=== PATIENT | female | born 1955 | race Caucasian/White ===

== ENCOUNTER → 2016-06-22 | Outpatient (CLI) | payer MEDICAID ==
--- NOTE | 2016-06-23 08:11 | MM ---
Reason for exam: screening (asymptomatic). Last mammogram was performed 1 year and 3 months ago. History: Patient is postmenopausal. Family history of breast cancer in aunt and breast cancer in mother at age 65. Took hormonal contraceptives for 1 year beginning at age 19. Physical Findings: A clinical breast exam by your physician is recommended on an annual basis and results should be correlated with mammographic findings. MG 3D Screening Mammo W/Cad Bilateral CC and MLO view(s) were taken. Prior study comparison: March 11, 2015, bilateral MG 3d screening mammo w/cad. September 25, 2013, bilateral MG screening mammo w CAD. The breast tissue is heterogeneously dense. This may lower the sensitivity of mammography. Asymmetric breast tissue in the right upper outer quadrant, stable. There is no discrete abnormality. ASSESSMENT: Negative, BI-RAD 1 RECOMMENDATION: Routine screening mammogram of both breasts in 1 year.
== END | disposition home or self-care (01) ==
LOC: RADMAMWWP 08:02
PROVIDERS: ATTEND Obstetrics & Gynecology
DX: Z12.31 Encounter for screening mammogram for malignant neoplasm of breast (principal); C54.1 Malignant neoplasm of endometrium
CPT/HCPCS: 77063; G0202

== ENCOUNTER → 2016-12-19 | Outpatient (CLI) | payer MEDICAID ==
--- NOTE | 2016-12-19 14:48 | BD ---
EXAMINATION TYPE: MG DEXA axial skeleton. DATE OF EXAM: 12/19/2016 COMPARISON: NONE CLINICAL HISTORY: Postmenopausal female. Height: 66.7 IN Weight: 184 LBS FRAX RISK QUESTIONS: Alcohol (3 or more units per day): NO Family History (Parent hip fracture): YES MOTHER Glucocorticoids (More than 3mos): NO (Ex: prednisone, prednisolone, methylprednisolone, dexamethasone, and hydrocortisone). History of Fracture in Adulthood: NO Secondary Osteoporosis: 1. Type 1 Diabetes: NO 2. Hyperthyroidism: NO 3. Menopause before 45: NO 4. Malnutrition: NO 5. Chronic liver disease: NO Rheumatoid Arthritis: NO Current Tobacco Use: NO RISK FACTORS HISTORY OF: Active: YES Postmenopausal woman: AGE 55 Take estrogen and/or progesterone medications: NOT NOW How long: VAGINAL HORMONES AGE 57 - 58 MEDICATIONS: Additional Medications: VIT D, COQ10, FISH OIL, PROBIOTICS, MAGNESIUM, TUMERIC, BLACK COHASH, TENORE TIC, EXAM MEASUREMENTS: Bone mineral densitometry was performed using the [employer] System. Bone mineral density as measured about the Lumbar spine is: ----- L1-L4(G/cm2): 1.101 T Score Values are as follows: ----- L2: -0.3 ----- L3: -1.3 ----- L4: -1.2 ----- L1-L4: -0.7 Bone mineral density has: Decreased -1.0% since study of: 09/29/2010 Bone mineral density about the R hip (g/cm2): 0.835 Bone mineral density about the L hip (g/cm2): 0.919 T Score values are as follows: -----R Neck: -1.5 -----L Neck: -0.9 -----R Total: -0.5 -----L Total: 0.1 Bone mineral density has: Decreased -1.7% since study of: 09/29/2010 IMPRESSION: 1. Osteopenia (T Score between -2.5 and -1 ) as noted by T score values regarding the right hip and l umbar spine There is slightly increased risk of fracture and the patient may be considered for treatment. Re-Screen 2-5 years. 2. Normal (Values between +1 and -1 indicate normal bone mass) regarding the left hip. Consider repeatin g this study in 5 years or sooner if there is some new clinical indication. NOTE: T-SCORE=SD OF THE YOUNG ADULT MEAN.
== END | disposition home or self-care (01) ==
LOC: RADBDWWP 07:50
PROVIDERS: ATTEND Obstetrics & Gynecology
DX: M85.851 Other specified disorders of bone density and structure, right thigh (principal); M85.88 Other specified disorders of bone density and structure, other site
CPT/HCPCS: 77080

== ENCOUNTER → 2016-12-28 | Outpatient (CLI) | payer MEDICAID ==
[2016-12-28 09:10] LABS: Basophils % (A) 1 %; CH 29.8; CHCM 33.3; Eosinophils # (A) 0.3 k/uL (0-0.7); Eosinophils % (A) 4 %; HDW 2.44; Luc # (Auto) 0.09; Luc % (Auto) 1; Lymphocytes # (A) 1.9 k/uL (1.0-4.8); Lymphocytes % (A) 28 %; MCH 30.7 pg (25.0-35.0); MCHC 34.3 g/dL (31.0-37.0); MCV 89.7 fL (80.0-100.0); Mean Platelet Volume 6.8; Monocytes # (A) 0.4 k/uL (0-1.0); Monocytes % (A) 5 %; Neutrophils # (A) 4.2 k/uL (1.3-7.7); Neutrophils % (A) 62 %; RBC 4.57 m/uL (3.80-5.40); RDW 12.7 % (11.5-15.5); WBC 6.8 k/uL (3.8-10.6); WBC (Perox) 7.23
[2016-12-28 09:23] LABS: Anion Gap 11 mmol/L; Blood Urea Nitrogen 12 mg/dL (7-17); Calcium 9.8 mg/dL (8.4-10.2); Carbon Dioxide 27 mmol/L (22-30); Chloride 101 mmol/L (98-107); Glucose 87 mg/dL (74-99); Non-African American GFR(MDRD) >60 (>60 ml/min/1.73 sqM); Sodium 139 mmol/L (137-145)
[2016-12-28 09:24] LABS: Appearance,Urine Clear (Clear); Bilirubin,Urine Negative (Negative); Glucose,Urine (UA) Negative (Negative); Ketones,Urine Negative (Negative); Leukocyte Esterase,Urine Negative (Negative); Nitrite,Urine Negative (Negative); PH, Urine 5.5 (5.0-8.0); Protein,Urine Negative (Negative); Specific Gravity,Urine 1.005 (1.001-1.035); UA Billing (MACRO vs. MICRO) CHEM; Urobilinogen,Urine <2.0 mg/dL (<2.0)
== END | disposition home or self-care (01) ==
LOC: LABPAT 08:32
PROVIDERS: ATTEND Urology
DX: N39.3 Stress incontinence (female) (male) (principal); N39.0 Urinary tract infection, site not specified; R35.0 Frequency of micturition; Z79.899 Other long term (current) drug therapy; Z01.812 Encounter for preprocedural laboratory examination
CPT/HCPCS: 80048; 81003; 85025; 87086

== ENCOUNTER 2017-01-05 08:22 | Observation (INO) | payer MEDICAID ==
[2016-12-29 11:01] VITALS: BMI 28.8
[~2017-01-05 08:22] MED LIST: DEXAMETHASONE SOD PHOSPHATE 10 MG/ML 1 ML VIAL IV ONE; LACTATED RINGERS 1,000 ML IV SCH; ONDANSETRON 4 MG/2 ML VIAL IVP ONE; ceFAZolin 1,000 MG in DEXTROSE/WATER 1 50ML.BAG IV ONE
[2017-01-05] MEDS ORDERED: LIDOCAINE 1% 20 ML VIAL (10MG/ML) FOR IV START INTRADERMA ONE (09:07)
[2017-01-05] MEDS ORDERED: SCOPOLAMINE 1.5MG/72HR PATCH TRANSDERM STA (09:48)
[2017-01-05] MEDS ORDERED: MIDAZOLAM 2 MG/2 ML VIAL ONE (10:29)
[2017-01-05] MEDS ORDERED: ePHEDrine SULFATE/0.9% NACL/PF 50 MG/5 ML SYRINGE IV ONE (10:29)
[2017-01-05] MEDS ORDERED: PROPOFOL 10 MG/ML 20 ML VIAL IV ONE (10:29)
[2017-01-05] MEDS ORDERED: SUCCINYLCHOLINE CHLORIDE 100 MG/5 ML SYR IV ONE (10:29)
[2017-01-05] MEDS ORDERED: LIDOCAINE 1% INJ 10MG/ML (20 ML MDV) ONE (10:29)
[2017-01-05] MEDS ORDERED: fentaNYL (PF) 50 MCG/ML 2 ML AMP ONE (10:29)
[2017-01-05] MEDS ORDERED: VASOPRESSIN 20 UNIT/ML 1 ML VIAL SQ ONE (10:52)
[2017-01-05] MEDS ORDERED: CYCLOBENZAPRINE 10 MG TAB PO PRN (11:33)
[2017-01-05] MEDS ORDERED: ONDANSETRON 4 MG/2 ML VIAL IVP PRN (11:34)
--- NOTE | 2017-01-05 11:44 | P.OP ---
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 I will use autologous fascia. Description of Procedure: The patient is brought to the operating suite and given a successful general endotracheal anesthesia. She's placed in lithotomy position with a sterile prep and drape. Root catheters introduced sterilely. The labia are sewn laterally with 2-0 silk. A vaginal speculum was introduced in the vagina. Anterior vaginal mucosa was elevated off the submucosa with 10 mL of of a mixture of 20 units of Pitressin and 200 mL of saline. A midline suburethral incision is made. I elevate the mucosa off the submucosa. I dissect lateral to the bladder neck bilaterally. I then make a suprapubic Pfannenstiel incision. I dissect down the rectus fascia. I take an ellipse of rectus fascia horizontally 2 x 8 cm. The rectus fascias closed with 2 running 0 PDS stitches. I then place 2-0 Prolene's through each end of the fascia graft. I passed the Stamey needles at the corner of the pubis retropubically into the vaginal space making sure not to injure the bladder. I performed cystoscopy to make sure no bladder injury has been created and there has been none. I then attached the Prolene stitches to the eyes of the Stamey needle and bringing them back up to the suprapubic fascia. The graft lay nicely at the bladder neck and the secured with a 4 Vicryl. I tied the ends of the Prolene stitch over the rectus fascia such that 2 fingerbreadths can fit between the stitch in the fascia. I closed the vaginal mucosa with 2-0 Vicryl. I closed the skin with a 4-0 Monocryl. A batch packing placed. The labial stitches are removed. The Root had been previously placed. The patient's awakened and returned recovery room good condition. Blood loss is 50 mL.
[2017-01-05] MEDS ORDERED: DEXTROSE 5%-0.45% NACL 1,000 ML IV SCH (11:45)
[2017-01-05] MEDS: KETOROLAC 30 MG/ML 1 ML VIAL IVP PRN ×2 (11:48→18:23)
[2017-01-05] MEDS: HYDROmorphone 1 MG/ML 1 ML SYRINGE IVP ONE ×2 (11:51→11:56)
[2017-01-05] MEDS ORDERED: LACTATED RINGERS 1,000 ML IV ONE ×3 (12:05)
[2017-01-05] MEDS ORDERED: PROMETHAZINE INJ 25 MG/ML 1 ML VIAL IVPB ONE (12:08)
[2017-01-05] MEDS ORDERED: ACETAMINOPHEN TAB 500 MG TAB PO PRN (20:40)
[2017-01-05] MEDS ORDERED: diphenhydrAMINE 50 MG CAP PO PRN (20:46)
[2017-01-06] MEDS: KETOROLAC 30 MG/ML 1 ML VIAL IVP PRN ×3 (00:27→12:55)
--- NOTE | 2017-01-06 06:48 | P.PN ---
Subjective The patient is 24 hours status post pubovaginal sling and cystoscopy for stress urinary incontinence. She did well overnight. She has some discomfort and her Pfannenstiel incision. The catheter and packing have just been removed. If she voids well she will probably be discharged home later today. Her vital signs are stable. Objective - Vital Signs Vital signs: Vital Signs Temp 97.9 F 01/05/17 20:30 Pulse 65 01/05/17 20:30 Resp 16 01/05/17 20:30 BP 105/63 01/05/17 20:30 Pulse Ox 94 L 01/05/17 20:30 Intake & Output 01/05/17 01/05/17 01/06/17 06:59 18:59 06:59 Intake Total 1780 120 Output Total 1325 Balance 455 120 Weight 83.46 kg Intake: IV 1750 Oral 30 120 Output: Urine 1300 Estimated Blood Loss 25 Other: Voiding Method Indwelling Catheter
--- NOTE | 2017-01-06 06:49 | P.DS ---
Providers Date of admission: 01/06/17 00:31 Attending physician: Paras Luque Primary care physician: Stated None Hospital Course: The patient underwent a pubovaginal sling for stress urinary incontinence 2016. She did well overnight. Her vital signs are stable. Her pain is controlled. If she voids well she'll be discharged home later today. She'll follow-up in the office in one week. Her medications upon discharge are the same as what she is admitted plus Toradol for pain. Postoperative instructions have been given. Condition is good. Procedures: Pubovaginal sling Patient Condition at Discharge: Good Plan - Discharge Summary New Discharge Prescriptions: New Ketorolac [Toradol] 10 mg PO Q6HR PRN #20 tab PRN Reason: Pain Control No Action Ubidecarenone [Co Q-10] 100 mg PO DAILY New [place]-3 Fatty Acids/Fish Oil [Fish Oil 1,000 mg Softgel] 1 cap PO DAILY Magnesium 200 mg PO DAILY L.acidoph,Paracasei, B.lactis [Probiotic] 1 cap PO DAILY Black Cohosh Root [Black Cohosh] 200 mg PO DAILY Atenolol/Chlorthalidone [Tenoretic 50 Tablet] 1 tab PO DAILY Aspirin [Adult Low Dose Aspirin EC] 81 mg PO DAILY Cyclobenzaprine [Flexeril] 10 mg PO HS PRN PRN Reason: Muscle Pain Ibuprofen [Motrin] 800 mg PO TID PRN PRN Reason: Pain Acetaminophen/Diphenhydramine [Tylenol PM 500-25mg] 2 tab PO HS PRN PRN Reason: Insomnia Vit A/Vit C/Vit E/Zinc/Copper [ICAPS SOFTGEL] 1 cap PO DAILY Turmeric Root Extract [Turmeric] 500 mg PO DAILY Discharge Medication List Aspirin [Adult Low Dose Aspirin EC] 81 mg PO DAILY 01/26/16 [History] Atenolol/Chlorthalidone [Tenoretic 50 Tablet] 1 tab PO DAILY 01/26/16 [History] Black Cohosh Root [Black Cohosh] 200 mg PO DAILY 01/26/16 [History] L.acidoph,Paracasei, B.lactis [Probiotic] 1 cap PO DAILY 01/26/16 [History] Magnesium 200 mg PO DAILY 01/26/16 [History] New [place]-3 Fatty Acids/Fish Oil [Fish Oil 1,000 mg Softgel] 1 cap PO DAILY [History] Ubidecarenone [Co Q-10] 100 mg PO DAILY 01/26/16 [History] Acetaminophen/Diphenhydramine [Tylenol PM 500-25mg] 2 tab PO HS PRN 01/29/16 [ History] Cyclobenzaprine [Flexeril] 10 mg PO HS PRN 01/29/16 [History] Ibuprofen [Motrin] 800 mg PO TID PRN 01/29/16 [History] Turmeric Root Extract [Turmeric] 500 mg PO DAILY 12/29/16 [History] Vit A/Vit C/Vit E/Zinc/Copper [ICAPS SOFTGEL] 1 cap PO DAILY 12/29/16 [History] Ketorolac [Toradol] 10 mg PO Q6HR PRN #20 tab 01/06/17 [Rx] Follow up Appointment(s)/Referral(s): Paras Luque MD [STAFF PHYSICIAN] - 1 Week Activity/Diet/Wound Care/Special Instructions: may shower Discharge Disposition: HOME SELF-CARE
[2017-01-06] MEDS ORDERED: ATENOLOL 50 MG TAB PO SCH (09:00)
[2017-01-06] MEDS ORDERED: ASPIRIN 81 MG PO SCH (09:00)
[2017-01-06] MEDS ORDERED: CHLORTHALIDONE PO SCH (09:00)
[2017-01-06] MEDS ORDERED: CHLORTHALIDONE 25 MG TAB PO SCH (09:00)
[2017-01-06] MEDS ORDERED: ATENOLOL PO SCH (09:00)
[2017-01-06 14:12] VITALS: BP 108/74; PULSE 60; RESP 20; TEMP 97.4
== END 2017-01-06 18:04 | disposition home or self-care (01) ==
LOC: OR 08:22 → 6PED 11:29 → OR 01-06 00:31
PROVIDERS: ADMIT Urology; ATTEND Urology
DX: N39.3 Stress incontinence (female) (male) (principal); I10 Essential (primary) hypertension; K21.9 Gastro-esophageal reflux disease without esophagitis; K44.9 Diaphragmatic hernia without obstruction or gangrene; Z85.89 Personal history of malignant neoplasm of other organs and systems; Z80.52 Family history of malignant neoplasm of bladder; Z87.891 Personal history of nicotine dependence; Z90.710 Acquired absence of both cervix and uterus; Z79.899 Other long term (current) drug therapy; Z79.82 Long term (current) use of aspirin; Z79.890 Hormone replacement therapy; Z88.5 Allergy status to narcotic agent
CPT/HCPCS: 57288; G0378; J2250; J1100; J2550; J2405; J2001; J3010; J1885 ×2; J1170; J0690; J0330; J2704

== ENCOUNTER → 2017-10-25 | Outpatient (CLI) | payer MEDICAID ==
--- NOTE | 2017-10-27 10:45 | MM ---
Reason for exam: screening (asymptomatic). Last mammogram was performed 1 year and 4 months ago. History: Patient is postmenopausal and history of other cancer. Family history of breast cancer in aunt and breast cancer in mother at age 65. Took hormonal contraceptives for 1 year beginning at age 19. Physical Findings: A clinical breast exam by your physician is recommended on an annual basis and results should be correlated with mammographic findings. MG 3D Screening Mammo W/Cad Bilateral CC and MLO view(s) were taken. Prior study comparison: June 22, 2016, bilateral MG 3d screening mammo w/cad. March 11, 2015, bilateral MG 3d screening mammo w/cad. There are scattered fibroglandular densities. No significant changes when compared with prior studies. ASSESSMENT: Negative, BI-RAD 1 RECOMMENDATION: Routine screening mammogram of both breasts in 1 year.
== END | disposition home or self-care (01) ==
LOC: RADMAMWWP 08:08
PROVIDERS: ATTEND Obstetrics & Gynecology
DX: Z12.31 Encounter for screening mammogram for malignant neoplasm of breast (principal)
CPT/HCPCS: 77063; 77067

== ENCOUNTER → 2018-05-18 | Outpatient (CLI) | payer MEDICAID ==
[2018-05-18 09:03] LABS: Basophils % (A) 1 %; Eosinophils # (A) 0.3 k/uL (0-0.7); Eosinophils % (A) 6 %; HCT 40.7 % (34.0-46.0); HGB 13.6 gm/dL (11.4-16.0); Lymphocytes # (A) 1.8 k/uL (1.0-4.8); Lymphocytes % (A) 36 %; MCH 29.8 pg (25.0-35.0); MCHC 33.4 g/dL (31.0-37.0); MCV 89.3 fL (80.0-100.0); Mean Platelet Volume 7.1; Monocytes # (A) 0.3 k/uL (0-1.0); Monocytes % (A) 5 %; Neutrophils # (A) 2.6 k/uL (1.3-7.7); Neutrophils % (A) 52 %; Platelet Count 250 k/uL (150-450); RBC 4.56 m/uL (3.80-5.40); RDW 12.9 % (11.5-15.5)
[2018-05-18 09:16] LABS: Appearance,Urine Clear (Clear); Bacteria,Urine Rare /hpf; Bilirubin,Urine Negative (Negative); Blood,Urine Negative (Negative); Color,Urine Yellow; Glucose,Urine (UA) Negative (Negative); Ketones,Urine Negative (Negative); Leukocyte Esterase,Urine Moderate (Negative); Mucus,Urine Rare /hpf; Nitrite,Urine Negative (Negative); Protein,Urine Negative (Negative); RBC,Urine 1 /hpf (0-5); Specific Gravity,Urine 1.011 (1.001-1.035); Squamous Epithelial Cell,Urine 1 /hpf (0-4); Urobilinogen,Urine <2.0 mg/dL (<2.0); WBC,Urine 2 /hpf (0-5)
[2018-05-18 10:18] LABS: Erythrocyte Sedimentation Rate 8 mm/hr (0-20)
[2018-05-18 16:41] LABS: Albumin 4.2 g/dL (3.80-4.90); Anion Gap 8.6 mmol/L (4.00-12.00); Calcium 9.4 mg/dL (8.7-10.3); Carbon Dioxide 32.4 mmol/L (21.6-31.8); Globulin 2.1 g/dL (1.6-3.3); LDL Cholesterol,Calculated 127.8 mg/dL (0.0-131.0); Potassium 3.7 mmol/L (3.5-5.5); Total Bilirubin 0.3 mg/dL (0.2-1.2); Total Protein 6.3 g/dL (6.2-8.2); VLDL Calculation 27.2 mg/dL (5.00-40.00)
[2018-05-18 16:47] LABS: Vitamin D 25 Hydroxy 37.3 ng/mL (30.0-100.0)
== END | disposition home or self-care (01) ==
LOC: LABWHC1 07:28
PROVIDERS: ATTEND Family Medicine
DX: Z00.00 Encounter for general adult medical examination without abnormal findings (principal); I10 Essential (primary) hypertension
CPT/HCPCS: 36415; 80053; 80061; 81001; 82306; 82550; 82607; 84443; 85025; 85652

== ENCOUNTER → 2018-12-24 | Outpatient (CLI) | payer MEDICAID ==
--- NOTE | 2018-12-24 10:55 | MM ---
Reason for exam: screening (asymptomatic). Last mammogram was performed 1 year and 2 months ago. History: Patient is postmenopausal and history of other cancer. Family history of breast cancer in aunt and breast cancer in mother at age 65. Took hormonal contraceptives for 1 year beginning at age 19. Physical Findings: A clinical breast exam by your physician is recommended on an annual basis and results should be correlated with mammographic findings. MG 3D Screening Mammo W/Cad Bilateral CC and MLO view(s) were taken. Prior study comparison: October 25, 2017, bilateral MG 3d screening mammo w/cad. June 22, 2016, bilateral MG 3d screening mammo w/cad. The breast tissue is heterogeneously dense. This may lower the sensitivity of mammography. There are benign appearing round calcifications bilaterally. There is no discrete abnormality. ASSESSMENT: Benign, BI-RAD 2 RECOMMENDATION: Routine screening mammogram of both breasts in 1 year.
--- NOTE | 2018-12-24 19:25 | BD ---
EXAMINATION TYPE: Axial Bone Density DATE OF EXAM: 12/24/2018 COMPARISON: 2017 CLINICAL HISTORY: 63-year-old female osteopenia Height: 66.75 Weight: 175 FRAX RISK QUESTIONS: Alcohol (3 or more units per day): no Family History (Parent hip fracture): yes, mother Glucocorticoids (More than 3mos): no (Ex: prednisone, prednisolone, methylprednisolone, dexamethasone, and hydrocortisone). History of Fracture in Adulthood: no Secondary Osteoporosis: 1. Type 1 Diabetes: no 2. Hyperthyroidism: no 3. Menopause before 45: no 4. Malnutrition: no 5. Chronic liver disease: no Rheumatoid Arthritis: no Current Tobacco Use: no RISK FACTORS HISTORY OF: Family History of Osteoporosis: no Active: yes Diet low in dairy products/other sources of calcium: no Postmenopausal woman: yes Take estrogen and/or progesterone medications: not now Lost more than 2 inches in height since high school: no Frequent falls: no Poor Health: no Hyperparathyroidism: no Adrenal Insufficiency: no MEDICATIONS: Prednisone or other steroids: no Thyroid Medications: no Osteoporosis Medications: no Additional Medications: blood pressure med Additional History: EXAM MEASUREMENTS: Bone mineral densitometry was performed using the [employer] System. Bone mineral density as measured about the Lumbar spine is: ----- L1-L4(G/cm2): 1.104 T Score Values are as follows: ----- L2: -0.4 ----- L3: -1.4 ----- L4: -0.9 ----- L1-L4: -0.6 Bone mineral density has: Increased 0.5% since study of: 12/19/2016 Bone mineral density about the R hip (g/cm2): 0.836 Bone mineral density about the L hip (g/cm2): 0.905 T Score values are as follows: -----R Neck: -1.5 -----L Neck: -1.0 -----R Total: -0.3 -----L Total: 0.1 Bone mineral density has: Increased 1.7% since study of: 12/19/2016 IMPRESSION: Osteopenia (T Score between -2.5 and -1). There is slightly increased risk of fracture and the patient may be considered for treatment. Re-Screen 2-5 years. NOTE: T-SCORE=SD OF THE YOUNG ADULT MEAN.
== END | disposition home or self-care (01) ==
LOC: RADMAMWWP 07:39
PROVIDERS: ATTEND Obstetrics & Gynecology
DX: Z12.31 Encounter for screening mammogram for malignant neoplasm of breast (principal); M85.80 Other specified disorders of bone density and structure, unspecified site
CPT/HCPCS: 77063; 77067; 77080

== ENCOUNTER → 2019-05-01 | Outpatient (CLI) | payer MEDICAID ==
[2019-05-01 07:52] LABS: Appearance,Urine Clear (Clear); Bacteria,Urine Occasional /hpf; Basophils # (A) 0.1 k/uL (0-0.2); Basophils % (A) 1 %; Bilirubin,Urine Negative (Negative); Blood,Urine Trace (Negative); Color,Urine Yellow; Eosinophils # (A) 0.3 k/uL (0-0.7); Eosinophils % (A) 6 %; Glucose,Urine (UA) Negative (Negative); HCT 41.2 % (34.0-46.0); HGB 13.8 gm/dL (11.4-16.0); Ketones,Urine Negative (Negative); Leukocyte Esterase,Urine Large (Negative); Lymphocytes # (A) 2.4 k/uL (1.0-4.8); Lymphocytes % (A) 42 %; MCH 29.8 pg (25.0-35.0); MCHC 33.4 g/dL (31.0-37.0); MCV 89.2 fL (80.0-100.0); Mean Platelet Volume 7.7; Monocytes # (A) 0.4 k/uL (0-1.0); Monocytes % (A) 7 %; Mucus,Urine Rare /hpf; Neutrophils # (A) 2.5 k/uL (1.3-7.7); Neutrophils % (A) 43 %; Nitrite,Urine Negative (Negative); Platelet Count 295 k/uL (150-450); Protein,Urine Negative (Negative); RBC 4.62 m/uL (3.80-5.40); RBC,Urine 4 /hpf (0-5); RDW 12.4 % (11.5-15.5); Specific Gravity,Urine 1.017 (1.001-1.035); Squamous Epithelial Cell,Urine 3 /hpf (0-4); Urobilinogen,Urine <2.0 mg/dL (<2.0); WBC 5.7 k/uL (3.8-10.6); WBC,Urine 28 /hpf (0-5)
[2019-05-01 13:25] LABS: Hepatitis A Antibody IgM Non-Reactive (Non-Reactive); Hepatitis B Core IgM Non-Reactive (Non-Reactive); Hepatitis B Surface Antigen Non-Reactive (Non-Reactive); Hepatitis C IgG Antibody Non-Reactive (Non-Reactive)
[2019-05-01 13:57] LABS: African American GFR (CKD) 79.4 (60.0-200.0); Albumin 4.4 g/dL (3.80-4.90); Albumin/Globulin Ratio 2.1 (1.60-3.17); Anion Gap 6.8 mmol/L (4.00-12.00); BUN/Creat Ratio 17.78 Ratio (12.00-20.00); Calcium 9.4 mg/dL (8.7-10.3); Carbon Dioxide 30.2 mmol/L (21.6-31.8); Chol/HDL Ratio 4.14; Globulin 2.1 g/dL (1.6-3.3); Non-African American GFR(CKD) 68.5 (60.0-200.0); Potassium 3.8 mmol/L (3.5-5.5); Total Bilirubin 0.3 mg/dL (0.3-1.2); Total Protein 6.5 g/dL (6.2-8.2)
[2019-05-01 14:05] LABS: T4, Free (Free Thyroxine) 1.1 ng/dL (0.80-1.80)
== END | disposition home or self-care (01) ==
LOC: LABWHC1 07:13
PROVIDERS: ATTEND Family Medicine
DX: Z00.00 Encounter for general adult medical examination without abnormal findings (principal); Z11.59 Encounter for screening for other viral diseases; I10 Essential (primary) hypertension; R32 Unspecified urinary incontinence
CPT/HCPCS: 36415; 80053; 80061; 80074; 81001; 82306; 82607; 84439; 84443; 85025

== ENCOUNTER → 2019-12-30 | Outpatient (CLI) | payer MEDICAID ==
--- NOTE | 2019-12-31 13:41 | MM ---
Reason for exam: screening (asymptomatic). Last mammogram was performed 1 year ago. History: Patient is postmenopausal and history of other cancer. Family history of breast cancer in aunt and breast cancer in mother at age 65. Took hormonal contraceptives for 1 year beginning at age 19. Physical Findings: A clinical breast exam by your physician is recommended on an annual basis and results should be correlated with mammographic findings. MG 3D Screening Mammo W/Cad Bilateral CC and MLO view(s) were taken. Prior study comparison: December 24, 2018, bilateral MG 3d screening mammo w/cad. October 25, 2017, bilateral MG 3d screening mammo w/cad. Benign appearing calcifications in the right breast. No significant changes when compared with prior studies. ASSESSMENT: Benign, BI-RAD 2 RECOMMENDATION: Routine screening mammogram of both breasts in 1 year.
== END | disposition home or self-care (01) ==
LOC: RADMAMWWP 08:39
PROVIDERS: ATTEND Obstetrics & Gynecology
DX: Z12.31 Encounter for screening mammogram for malignant neoplasm of breast (principal)
CPT/HCPCS: 77063; 77067

== ENCOUNTER → 2020-07-10 | Outpatient (CLI) | payer MEDICAID ==
[2020-07-10 09:42] LABS: Appearance,Urine Cloudy (Clear); Bacteria,Urine Rare /hpf; Bilirubin,Urine Negative (Negative); Blood,Urine Small (Negative); Color,Urine Yellow; Glucose,Urine (UA) Negative (Negative); Ketones,Urine Negative (Negative); Leukocyte Esterase,Urine Large (Negative); Mucus,Urine Few /hpf; Nitrite,Urine Negative (Negative); PH, Urine 5.5 (5.0-8.0); Protein,Urine Trace (Negative); RBC,Urine 12 /hpf (0-5); Specific Gravity,Urine 1.021 (1.001-1.035); Squamous Epithelial Cell,Urine 17 /hpf (0-4); Urobilinogen,Urine <2.0 mg/dL (<2.0); WBC,Urine 39 /hpf (0-5)
[2020-07-10 14:39] LABS: Basophils # (A) 0.04 X 10*3/uL (0.00-0.10); Basophils % (A) 0.6 %; Eosinophils # (A) 0.23 X 10*3/uL (0.04-0.35); Eosinophils % (A) 3.3 %; HCT 43.6 % (37.2-46.3); HGB 14.2 g/dL (12.0-15.0); Lymphocytes # (A) 2.42 X 10*3/uL (0.90-5.00); MCH 29.3 pg (27.0-32.0); MCHC 32.6 g/dL (32.0-37.0); MCV 89.9 fL (80.0-97.0); Mean Platelet Volume 10.4 fL (9.5-12.2); Monocytes # (A) 0.42 X 10*3/uL (0.20-1.00); Monocytes % (A) 6.1 %; Neutrophils % (A) 54.9 %; Platelet Count 301 X 10*3/uL (140-440); RBC 4.85 X 10*6/uL (4.10-5.20); RDW 12.4 % (11.5-14.5); WBC 6.92 X 10*3/uL (4.50-10.00)
[2020-07-10 16:40] LABS: African American GFR (CKD) 90.9 (60.0-200.0); Albumin 4.6 g/dL (3.80-4.90); Albumin/Globulin Ratio 2.09 (1.60-3.17); Anion Gap 8.7 mmol/L (4.00-12.00); BUN/Creat Ratio 18.75 Ratio (12.00-20.00); Calcium 10.1 mg/dL (8.7-10.3); Carbon Dioxide 30.3 mmol/L (21.6-31.8); Chol/HDL Ratio 4.67; Globulin 2.2 g/dL (1.6-3.3); LDL Cholesterol,Calculated 151.2 mg/dL (0.0-131.0); Non-African American GFR(CKD) 78.5 (60.0-200.0); Potassium 3.9 mmol/L (3.5-5.5); Total Bilirubin 0.5 mg/dL (0.2-1.2); Total Protein 6.8 g/dL (6.2-8.2); VLDL Calculation 28.8 mg/dL (5.00-40.00)
[2020-07-10 16:48] LABS: T4, Free (Free Thyroxine) 1.1 ng/dL (0.80-1.80)
== END | disposition home or self-care (01) ==
LOC: LABWHC1 08:35
PROVIDERS: ATTEND Family Medicine
DX: Z13.220 Encounter for screening for lipoid disorders (principal); R53.82 Chronic fatigue, unspecified
CPT/HCPCS: 36415; 80053; 80061; 81001; 82150; 82306; 82550; 82607; 83690; 84439; 84443; 85025; 86800

== ENCOUNTER 2020-07-31 07:19 | Day surgery (SDC) | payer MEDICAID ==
[2020-07-30 13:57] VITALS: BMI 27.7
[~2020-07-31 07:19] MED LIST changes: -DEXAMETHASONE SOD PHOSPHATE 10 MG/ML 1 ML VIAL IV ONE; -ONDANSETRON 4 MG/2 ML VIAL IVP ONE; -ceFAZolin 1,000 MG in DEXTROSE/WATER 1 50ML.BAG IV ONE
[2020-07-31] MEDS ORDERED: atenoloL 50 MG TAB PO STA (07:29)
[2020-07-31 07:38] VITALS: RESP 16; TEMP 98.2
[2020-07-31] MEDS ORDERED: PROPOFOL 10 MG/ML 20 ML VIAL IV ONE (08:05)
[2020-07-31] MEDS ORDERED: LIDOCAINE 1% INJ 10MG/ML (20 ML MDV) ONE (08:05)
--- NOTE | 2020-07-31 08:27 | P.PCN ---
Date of Procedure: 07/31/20 Procedure(s) Performed: Brief history: Patient is a pleasant scheduled for an elective upper endoscopy as well as colonoscopy as a part of evaluation of Procedure performed: Esophagogastroduodenoscopy with biopsy and balloon dilation Colonoscopy Preoperative diagnosis: Intermittent dysphagia to solids for the last 1 year duration Screening for colon cancer Anesthesia: MAC Procedure: After informed consent was obtained from the patient was brought into the endoscopy unit and IV sedation was administered by anesthesia under continuous monitoring. Initially upper endoscopy was done. The Olympus GF 160 video endoscope was inserted inserted into the mouth and esophagus intubated without any difficulty and was gradually advanced into the stomach and duodenum and carefully examined. The bulb and second part of the duodenum appeared normal. The scope was then withdrawn into the stomach adequately insufflated with air and upon careful examination the antrum there was a 5 mm superficial ulcer identified antral gastritis and biopsies were done from this area. The body, cardia and fundus appeared normal. The scope was then withdrawn into the esophagus. The GE junction was located at 37 cm to the incisors. small hiatal hernia noted. There was an early distal esophageal stricture noted at this time I proceeded with balloon dilation using 18-20 mm TTS balloon. He was initially dilated to 18 mm for 30 seconds and following this there was a mucosal there was brisk oozing and further dilation was not performed.. Rest of the esophagus appeared normal. Patient tolerated the procedure well. At this time the patient continued to remain sedation. Initial digital rectal examination was normal. Olympus CF 160 video colonoscope was then inserted into the rectum and gradually advanced to the cecum without any difficulty. Careful examination was performed as the scope was gradually being withdrawn. The prep was excellent. The cecum, ascending colon, transverse colon, descending colon, sigmoid colon and rectum appeared normal. Retroflexion was performed in the rectum and no lesions were noted. Patient tolerated the procedure well. Impression: 1. Upper endoscopy revealed distal esophageal stricture status post balloon dilation using 8 mm TTS balloon, small hiatal hernia and a 5 mm antral ulcer 2. Colonoscopy was within normal limits with no evidence of colitis or colorectal neoplasia Recommendations: Findings of this examination were discussed with the patient as well as her family. She was advised to be on a clear liquid last diet for lunch today. Trial of Prilosec 20 mg daily for 2 months. Repeat screening colonoscopy in
[2020-07-31 09:04] VITALS: BP 139/65; PULSE 75
== END 2020-07-31 09:20 | disposition home or self-care (01) ==
LOC: ORWHC2ENDO 07:19
PROVIDERS: ATTEND Internal Medicine Gastroenterology
DX: K29.50 Unspecified chronic gastritis without bleeding (principal); R13.10 Dysphagia, unspecified; Z12.11 Encounter for screening for malignant neoplasm of colon; K22.2 Esophageal obstruction; K44.9 Diaphragmatic hernia without obstruction or gangrene; I10 Essential (primary) hypertension; Z79.899 Other long term (current) drug therapy; Z88.5 Allergy status to narcotic agent
CPT/HCPCS: 88305; 88342; 43239; 43249; J2001; J2704; G0121

== ENCOUNTER → 2021-01-04 | Outpatient (CLI) | payer MEDICAID ==
--- NOTE | 2021-01-05 11:43 | MM ---
Reason for exam: screening (asymptomatic). Last mammogram was performed 1 year ago. History: Patient is postmenopausal and history of other cancer. Family history of breast cancer in aunt and breast cancer in mother at age 65. Took hormonal contraceptives for 1 year beginning at age 19. Physical Findings: A clinical breast exam by your physician is recommended on an annual basis and results should be correlated with mammographic findings. MG 3D Screening Mammo W/Cad Bilateral CC and MLO view(s) were taken. Prior study comparison: December 30, 2019, bilateral MG 3d screening mammo w/cad. The breast tissue is heterogeneously dense. This may lower the sensitivity of mammography. There is no discrete abnormality. No significant changes when compared with prior studies. ASSESSMENT: Negative, BI-RAD 1 RECOMMENDATION: Routine screening mammogram of both breasts in 1 year.
== END | disposition home or self-care (01) ==
LOC: RADMAMWWP 06:58
PROVIDERS: ATTEND Obstetrics & Gynecology
DX: Z12.31 Encounter for screening mammogram for malignant neoplasm of breast (principal); Z80.3 Family history of malignant neoplasm of breast
CPT/HCPCS: 77063; 77067

== ENCOUNTER → 2021-02-22 | Outpatient (CLI) | payer MEDICAID ==
--- NOTE | 2021-02-22 19:01 | BD ---
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 ([employer] System. Bone mineral density as measured about the Lumbar spine is: ----- L1-L4(G/cm2): 1.155 T Score Values are as follows: ----- L1: 0.3 ----- L2: -0.1 ----- L3: -0.9 ----- L4: -0.1 ----- L1-L4: -0.2 Bone mineral density has: Increased 5.7% since study of: 12.24.2018 Bone mineral density about the R hip (g/cm2): 0.948 Bone mineral density about the L hip (g/cm2): 1.050 T Score values are as follows: -----R Neck: -1.6 -----L Neck: -0.8 -----R Total: -0.5 -----L Total: 0.3 Bone mineral density has: Decreased -0.2% since study of: 12.24.2018 FRAX%s: THERE IS A 14.8% CHANCE FOR A MAJOR OSTEOPOROTIC FX AND A 1.6% FOR HIP.....PROBABILITY FOR FX IN 10 YRS TIME IMPRESSION: Osteopenia (T Score between -2.5 and -1). There is slightly increased risk of fracture and the patient may be considered for treatment. Re-Screen 2-5 years. NOTE: T-SCORE=SD OF THE YOUNG ADULT MEAN.
== END | disposition home or self-care (01) ==
LOC: RADBDWWP 07:57
PROVIDERS: ATTEND Obstetrics & Gynecology
DX: M85.851 Other specified disorders of bone density and structure, right thigh (principal)
CPT/HCPCS: 77080

== ENCOUNTER → 2021-07-09 | Outpatient (CLI) | payer MEDICAID ==
[2021-07-09 10:57] LABS: Basophils # (A) 0.06 X 10*3/uL (0.00-0.10); Basophils % (A) 0.9 %; Eosinophils # (A) 0.48 X 10*3/uL (0.04-0.35); HCT 40.7 % (37.2-46.3); HGB 13.5 g/dL (12.0-15.0); Immature Grans, Automated 0.3 %; Lymphocytes # (A) 2.52 X 10*3/uL (0.90-5.00); Lymphocytes % (A) 36.5 %; MCH 29.1 pg (27.0-32.0); MCHC 33.2 g/dL (32.0-37.0); MCV 87.7 fL (80.0-97.0); Mean Platelet Volume 10.4 fL (9.5-12.2); Monocytes # (A) 0.53 X 10*3/uL (0.20-1.00); Monocytes % (A) 7.7 %; NRBC Per 100 WBC 0 /100 WBCS (0.0-0.0); Neutrophils # (A) 3.29 X 10*3/uL (1.80-7.70); Neutrophils % (A) 47.6 %; Platelet Count 280 X 10*3/uL (140-440); RBC 4.64 X 10*6/uL (4.10-5.20); RDW 13.1 % (11.5-14.5)
[2021-07-09 11:08] LABS: ALT 19 U/L (8-44); AST 15 U/L (13-35); African American GFR (CKD) 90.3 (60.0-200.0); Albumin 4.6 g/dL (3.8-4.9); Albumin/Globulin Ratio 1.92 (1.60-3.17); Alkaline Phosphatase 45 U/L (41-126); Calcium 9.6 mg/dL (8.7-10.3); Carbon Dioxide 27.6 mmol/L (20.0-27.5); Chloride 100 mmol/L (96-109); Chol/HDL Ratio 3.88 Ratio; Globulin 2.4 g/dL (1.6-3.3); Glucose 110 mg/dL (70-110); LDL Cholesterol,Calculated 133.3 mg/dL (0.0-131.0); Non-African American GFR(CKD) 77.9 (60.0-200.0); Potassium 3.4 mmol/L (3.5-5.5); Sodium 141 mmol/L (135-145)
[2021-07-10 02:10] LABS: Appearance,Urine Cloudy (Clear); Bacteria,Urine 3+ /HPF (None Seen); Bilirubin,Urine Negative (Negative); Blood,Urine Negative (Negative); Color,Urine Dark Yellow (Yellow); Ketones,Urine Trace mg/dL (Negative); Nitrite,Urine Negative (Negative); PH, Urine 6.5 (5.0-8.0); Specific Gravity,Urine 1.023 (1.001-1.030)
== END | disposition home or self-care (01) ==
LOC: LABWHC1 07:26
PROVIDERS: ATTEND Nurse Practitioner
DX: Z00.00 Encounter for general adult medical examination without abnormal findings (principal); I10 Essential (primary) hypertension; E78.5 Hyperlipidemia, unspecified
CPT/HCPCS: 36415; 80053; 80061; 81001; 84443; 85025

== ENCOUNTER → 2022-02-08 | Outpatient (CLI) | payer MEDICARE ==
--- NOTE | 2022-02-08 12:00 | MM ---
Reason for Exam: Screening (asymptomatic). Last mammogram was performed 1 year(s) and 2 month(s) ago. Patient History: Menarche at age 15. First Full-Term at age 25. Left ovary removed at age 59. Right ovary removed at age 59. Hysterectomy at age 59. Postmenopausal. Other cancer. Hormonal Contraceptives, starting at age 19 for 1 year. Maternal aunt had breast cancer. Mother had breast cancer, age 65. Risk Values: Aicha 5 year model risk: 2.9%. NCI Lifetime model risk: 10.7%. Prior Study Comparison: 12/24/2018 Bilateral Screening Mammogram, LOC[facility]IN [facility]. 12/30/2019 Bilateral Screening Mammogram, [facility]. 01/04/2021 Bilateral Screening Mammogram, [facility]. Tissue Density: The breast tissue is heterogeneously dense. This may lower the sensitivity of mammography. Findings: Analyzed By CAD. There is occasional small scattered benign-appearing round calcification in the bilateral breasts. There is no suspicious group of microcalcifications or new suspicious mass in either breast. Overall Assessment: Benign, BI-RAD 2 Management: Screening Mammogram of both breasts in 1 year. A clinical breast exam by your physician is recommended on an annual basis and results should be correlated with mammographic findings. Electronically signed and approved by: Eliu Michelle M.D.
== END | disposition home or self-care (01) ==
LOC: RADMAMWWP 08:26
PROVIDERS: ATTEND Obstetrics & Gynecology
DX: Z12.31 Encounter for screening mammogram for malignant neoplasm of breast (principal)
CPT/HCPCS: 77063; 77067

== ENCOUNTER → 2023-02-20 | Outpatient (CLI) | payer MEDICARE ==
--- NOTE | 2023-02-21 06:38 | MM ---
Reason for Exam: Screening (asymptomatic). Last screening mammogram was performed 12 month(s) ago. Patient History: Menarche at age 15. First Full-Term at age 25. Left ovary removed at age 59. Right ovary removed at age 59. Hysterectomy at age 59. Postmenopausal. Other cancer. Hormonal Contraceptives, starting at age 19 for 1 year. Maternal aunt had breast cancer. Mother had breast cancer, age 65. Risk Values: Aicha 5 year model risk: 2.9%. NCI Lifetime model risk: 10.3%. Prior Study Comparison: 12/30/2019 Bilateral Screening Mammogram, [facility]. 01/04/2021 Bilateral Screening Mammogram, [facility]. 02/08/2022 Bilateral MG 3D screening mammo w/cad, [facility]. Tissue Density: The breast tissue is heterogeneously dense. This may lower the sensitivity of mammography. Findings: Analyzed By CAD. There is no suspicious group of microcalcifications or new suspicious mass in either breast. Benign calcification within the left breast. Overall Assessment: Benign, BI-RAD 2 Management: Screening Mammogram of both breasts in 1 year. A clinical breast exam by your physician is recommended on an annual basis and results should be correlated with mammographic findings. Note on Aicha scores and lifetime risk: 1. A Aicha score greater than 3% is considered moderate risk. If this is the case, consider specialist referral to assess eligibility for a risk reducing agent. If overall lifetime risk for the development of breast cancer is 20% or higher, the patient may qualify for future screening with alternating mammogram and breast MRI. Electronically signed and approved by: René Corrales D.O.
== END | disposition home or self-care (01) ==
LOC: RADMAMWWP 16:12
PROVIDERS: ATTEND Obstetrics & Gynecology
DX: Z12.31 Encounter for screening mammogram for malignant neoplasm of breast (principal); Z78.0 Asymptomatic menopausal state; Z80.3 Family history of malignant neoplasm of breast
CPT/HCPCS: 77063; 77067

== ENCOUNTER → 2023-08-04 | Outpatient (CLI) | payer MEDICARE ==
--- NOTE | 2023-08-04 10:16 | USB ---
Reason for Exam: Clinical finding. Patient History: Menarche at age 15. First Full-Term at age 25. Left ovary removed at age 59. Right ovary removed at age 59. Hysterectomy at age 59. Postmenopausal. Other cancer. Hormonal Contraceptives, starting at age 19 for 1 year. Maternal aunt had breast cancer. Mother had breast cancer, age 65. Risk Values: Aicha 5 year model risk: 2.9%. NCI Lifetime model risk: 10.3%. Technique: Method: Targeted. Doppler: Color. Patient Position: Supine. Prior Study Comparison: 01/04/2021 Bilateral Screening Mammogram, [facility]. 02/08/2022 Bilateral MG 3D screening mammo w/cad, [facility]. 02/20/2023 Bilateral MG 3D screening mammo w/cad, [facility]. Findings: The lower inner quadrant of the left breast, the axilla of the left breast and the retroareolar of the left breast were scanned. No solid or cystic masses are identified.. Overall Assessment: Negative, BI-RAD 1 Management: Screening Mammogram of both breasts in 7 months. A clinical breast exam by your physician is recommended on an annual basis and results should be correlated with mammographic findings. This exam should not preclude additional follow-up of suspicious palpable abnormalities. Results were given to the patient verbally at the time of exam. Electronically signed and approved by: Isra Guzman M.D. Radiologis
== END | disposition home or self-care (01) ==
LOC: RADUSWWP 09:47
PROVIDERS: ATTEND Internal Medicine Geriatric Medicine
DX: N63.24 Unspecified lump in the left breast, lower inner quadrant (principal); Z78.0 Asymptomatic menopausal state; Z80.3 Family history of malignant neoplasm of breast

== ENCOUNTER → 2024-02-27 | Outpatient (CLI) | payer MEDICARE ==
--- NOTE | 2024-02-27 11:20 | MM ---
Reason for Exam: Screening (asymptomatic). Last screening mammogram was performed 12 month(s) ago. Patient History: Menarche at age 15. First Full-Term at age 25. Left ovary removed at age 59. Right ovary removed at age 59. Hysterectomy at age 59. Postmenopausal. Endometrial cancer. Hormonal Contraceptives, starting at age 19 for 1 year. Maternal aunt had breast cancer. Mother had breast cancer, age 65. Risk Values: Aicha 5 year model risk: 3.0%. NCI Lifetime model risk: 9.9%. Prior Study Comparison: 01/04/2021 Bilateral Screening Mammogram, [facility]. 02/08/2022 Bilateral MG 3D screening mammo w/cad, [facility]. 02/20/2023 Bilateral MG 3D screening mammo w/cad, [facility]. Tissue Density: There are scattered areas of fibroglandular density. Findings: Analyzed By CAD. Right breast: There is no suspicious group of microcalcifications or new suspicious mass. Benign-appearing calcifications right breast. Left breast: There is no suspicious group of microcalcifications or new suspicious mass. Overall Assessment: Benign, BI-RAD 2 Management: Screening Mammogram of both breasts in [address] [facility] will attempt to contact patient to return for supplemental views and ultrasound if indicated. Patient should continue monthly self-breast exams. A clinical breast exam by your physician is recommended on an annual basis. This exam should not preclude additional follow-up of suspicious palpable abnormalities. Note on Aicha scores and lifetime risk: 1. A Aicha score greater than 3% is considered moderate risk. If this is the case, consider specialist referral to assess eligibility for a risk reducing agent. 2. If overall lifetime risk for the development of breast cancer is 20% or higher, the patient may qualify for future screening with alternating mammogram and breast MRI. [facility], , 02/27/2024 11:17 AM. Electronically signed and approved by: Raphael Marquis DO
== END | disposition home or self-care (01) ==
LOC: RADMAMWWP 08:16
PROVIDERS: ATTEND Internal Medicine Geriatric Medicine
DX: Z12.31 Encounter for screening mammogram for malignant neoplasm of breast (principal); Z78.0 Asymptomatic menopausal state; Z80.3 Family history of malignant neoplasm of breast; R92.323 Mammographic fibroglandular density, bilateral breasts
CPT/HCPCS: 77063; 77067